=== PATIENT | female | born 1935 | race Caucasian/White ===

== ENCOUNTER 2021-03-16 10:10 | Emergency (ER) | payer MEDICARE ==
[2021-03-16] MEDS ORDERED: GlucaGen 1 MG IM ONE (10:17)
[2021-03-16] MEDS ORDERED: GlucaGen 1 MG ONE (10:21)
[2021-03-16 10:24] VITALS: PULSE 62
--- NOTE | 2021-03-16 11:03 | XRAY ---
Indication: Pill in trachea. Comparison: None PA/lateral chest demonstrates COPD with patchy right midlung interstitial alveolar opacities. No radiopaque foreign body. Remaining heart and left lung unremarkable. Scattered aortic calcifications. Bony thorax intact with mild osteopenia, degenerative changes, remote T7 compression fracture, and mild dextroscoliosis. Soft tissue neck reported separately. Impression: 1. Patchy right lung interstitial alveolar opacities. Rule out pneumonia. 2. COPD, sclerotic disease, and chronic bony findings.
--- NOTE | 2021-03-16 11:07 | XRAY ---
Indication: Pill in trachea. Comparison: None AP/lateral soft tissue neck demonstrates 2 pills in the proximal esophagus approximately C6-C7 level. Elsewhere osteopenia and minimal/mild multilevel cervical degenerative changes. No other bony, articular, or soft tissue abnormalities. Chest reported separately.
[2021-03-16 11:17] VITALS: BP 153/98; O2SAT 99
[2021-03-16 12:02] LABS: Absolute Neutrophil Ct (ANC) 10.43 (1.4-6.9); Basophil (Absolute #) 0.01 (0-0.4); Eosinophil % 0.1 % (0.00-5.0); Eosinophil (Absolute #) 0.01 (0-0.5); Hematocrit 40.9 % (35-47); Lymphocyte (Absolute #) 1.36 (1.0-4.6); Lymphocytes % 10.9 % (24.0-44.0); Mean Cell Volume 94.5 fl (78-100); Mean Corpuscular Hgb Concent. 31.8 g/dl (32-36); Mean Platelet Volume 10.8 fl (7.5-11.0); Monocyte (Absolute #) 0.65 (0.0-1.3); Monocytes % 5.2 % (0.0-12.0); Neutrophil % 83.7 % (36.0-66.0); Platelet Count 219 K/mm3 (150-450); Red Blood Count 4.33 M/mm3 (4.1-5.4); Red Cell Distribution Width 13.1 % (11.5-14.0); White Blood Count 12.5 K/mm3 (4.0-10.5)
--- NOTE | 2021-03-16 12:09 | ERPHSYRPT ---
- History of Present Illness Time Seen by Provider: 03/16/21 10:30 Source: patient, EMS Exam Limitations: no limitations Patient Subjective Stated Complaint: pt here for possible pill stuck in throat, ems states she schoked after taking pills this am and she is unable to swallow water Triage Nursing Assessment: pt alert, states feels like pill in throat.resp easy, skin w/d/p. pt gagging at times. no drooling Physician History: Patient was taking a series of pills this morning when she apparently had either a bolus of pills or a pill which lodged and she was sent to the ER on the order of Dr. Adam Howell. She has attempted on several occasions to swallow water but it immediately comes back up. She has a history of hyperlipidemia hypertension. Timing/Duration: today Cough Quality/Degree: productive cough Modifying Factors: Improves With: other (The episode of choking and inability to swallow her saliva and water occurred after she took several pills.) Associated Symptoms: cough Allergies/Adverse Reactions: No Known Drug Allergies Allergy (Verified 03/16/21 10:31) Home Medications: Fenofibrate 54 mg PO DAILY 10/07/12 [History] Furosemide 40 mg [Lasix 40 MG] 40 mg PO DAILY 10/07/12 [History] Irbesartan/Hydrochlorothiazide [Avalide 150-12.5 mg Tablet] 1 each PO DAILY 10/07/12 [History] Omeprazole Magnesium [Prilosec Otc] 20 mg PO DAILY 10/07/12 [History] Simvastatin 40 mg [Zocor 40 mg] 40 mg PO DAILY 10/07/12 [History] Hx Tetanus, Diphtheria Vaccination/Date Given: No Hx Influenza Vaccination/Date Given: No Hx Pneumococcal Vaccination/Date Given: Yes Travel Risk - International Travel Have you traveled outside of the country in past 3 weeks: No - Coronavirus Screening Are you exhibiting any of the following symptoms?: No - Vaccine Status Have you recieved a Covid-19 vaccination: No Director Of Loss Prevention: Unknown - Vaccination Dates Date of 2cond Vaccination (if applicable): ? Dates if Unknown: ? - Review of Systems Constitutional: No Fever, No Chills Eyes: No Symptoms Ears, Nose, & Throat: Other (Difficulty swallowing) Respiratory: Cough, No Dyspnea Cardiac: No Chest Pain, No Edema, No Syncope Abdominal/Gastrointestinal: No Abdominal Pain, No Nausea, No Vomiting, No Diarrhea Genitourinary Symptoms: No Dysuria Musculoskeletal: No Back Pain, No Neck Pain Skin: No Rash Neurological: No Dizziness, No Focal Weakness, No Sensory Changes Psychological: No Symptoms Endocrine: No Symptoms All Other Systems: Reviewed and Negative - Past Medical History Pertinent Past Medical History: Yes Neurological History: Other ENT History: Cataracts Cardiac History: Hypertension, Other Respiratory History: No Pertinent History Endocrine Medical History: Diabetes Type I, Other Musculoskeletal History: Arthritis, Degenerative Disk Disease, Fractures, Osteoarthritis, Osteoporosis, Other GI Medical History: GERD History: No Pertinent History Psycho-Social History: Anxiety, Depression Female Reproductive Disorders: No Pertinent History Other Medical History: HX OF HAVING HER URETHRA OPENED WITH STENOSIS BACK IN THE 70'S - Past Surgical History Past Surgical History: Yes Neuro Surgical History: No Pertinent History Cardiac: No Pertinent History Respiratory: No Pertinent History Gastrointestinal: Appendectomy, Cholecystectomy Genitourinary: Other Musculoskeletal: Other Female Surgical History: Hysterectomy Other Surgical History: BACK SURGERY TIMES 2. LEFT EYE CATARACT REMOVAL. RIGHT EYE STILL HAS CATARACT - Social History Smoking Status: Former smoker How long have you smoked: 50 Exposure to second hand smoke: No Drug Use: none Patient Lives Alone: No ([facility]) - Female History Hx Last Menstrual Period: post - Nursing Vital Signs Nursing Vital Signs: Initial Vital Signs Temperature 97.0 F 03/16/21 10:23 Pulse Rate 62 03/16/21 10:23 Respiratory Rate 18 03/16/21 10:23 Blood Pressure 151/74 03/16/21 10:23 O2 Sat by Pulse Oximetry 97 03/16/21 10:23 Pain Scale Pain Intensity 3 - Physical Exam General Appearance: mild distress Eye Exam: PERRL/EOMI, eyes nml inspection Ears, Nose, Throat Exam: TMs normal, pharynx normal, moist mucous membranes, other (Difficulty swallowing sensation of something stuck in her throat) Neck Exam: normal inspection, non-tender, supple, full range of motion Respiratory Exam: rhonchi, No respiratory distress Cardiovascular Exam: regular rate/rhythm, normal heart sounds Gastrointestinal/Abdomen Exam: soft, No tenderness Back Exam: normal inspection, No CVA tenderness, No vertebral tenderness Extremity Exam: normal inspection, normal range of motion Neurologic Exam: alert, oriented x 3, cooperative, normal mood/affect, sensation nml, No motor deficits Skin Exam: normal color, warm, dry, No rash SpO2 Interpretation: normal SpO2: 99 O2 Delivery: Room Air - Course Nursing assessment & vital signs reviewed: Yes - Radiology Exams C-Spine X-ray Interpretation: Interpreted by me (The radiologist demonstrated 2 pills in the proximal esophagus at approximately the C6-7 level she also showed on her chest x-ray a patchy right lung and interstitial opacities are the) Ordered Tests: Active Orders 24 hr Category Date Time Status CHEST 2 VIEWS (PA AND LAT) Stat Exams 03/16/21 10:48 Completed NECK SOFT TISSUE Stat Exams 03/16/21 10:14 Completed CBC W DIFF Stat Lab 03/16/21 11:45 Completed CMP Stat Lab 03/16/21 11:45 Received Medication Summary Discontinued Medications Generic Name Dose Route Start Last Admin Trade Name Regis PRN Reason Stop Dose Admin Glucagon 1 mg 03/16/21 10:17 03/16/21 10:22 Glucagon 1 Mg/Vial Vial IM 03/16/21 10:18 1 mg STAT ONE Administration Glucagon Confirm 03/16/21 10:21 Glucagon 1 Mg/Vial Vial Administered 03/16/21 10:22 Dose 1 mg .ROUTE .STK-MED ONE - Progress Progress: improved Air Movement: good Progress Note: 03/16/21 12:09 Chest x-ray showed a possible small infiltrate in the right lung and as a consequence this could represent some aspiration as opposed so we will treat her with antibiotics. Blood Culture(s) Obtained: No Antibiotics given: Yes - Departure Departure Disposition: Extended Care Facility Clinical Impression: Impacted esophageal foreign body Condition: Stable Critical Care Time: No Referrals: AKANKSHA FRENCH [Primary Care Provider] - Follow up/PCP as directed Instructions: Choking Prescriptions: Cephalexin 250 mg/5 ml Susp [Keflex 250 mg/5 ml Susp] 500 mg PO TID #300 ml
== END 2021-03-16 12:25 | disposition home or self-care (01) ==
LOC: ED 10:10
DX: T18.198A Other foreign object in esophagus causing other injury, initial encounter (principal); I10 Essential (primary) hypertension; E10.9 Type 1 diabetes mellitus without complications
CPT/HCPCS: 36415; 70360; 71046; 80053; 85025; 96372; 99284; J1610

== ENCOUNTER 2023-06-08 14:45 | Emergency (ER) | payer MEDICARE ==
[2023-06-08 15:07] VITALS: TEMP 97.9
[2023-06-08 15:17] VITALS: RESP 20
[2023-06-08 15:28] LABS: Absolute Neutrophil Ct (ANC) 7.38 x10^3/uL (1.4-6.9); BASOPHIL % 0.7 % (0.0-0.4); Basophil (Absolute #) 0.07 x10^3/uL (0-0.4); Eosinophil % 0.3 % (0.00-5.0); Eosinophil (Absolute #) 0.03 x10^3/uL (0-0.5); Hematocrit 43.9 % (35-47); Hemoglobin 12.9 g/dL (12.0-16.0); IMMATURE GRAN # 0.04 x10^3u/L (0.00-0.03); IMMATURE GRAN % 0.4 % (0.00-0.4); Lymphocytes % 20.9 % (24.0-44.0); Mean Cell Volume 101.9 fL (78-100); Mean Corpuscular Hemoglobin 29.9 pg (26-32); Mean Corpuscular Hgb Concent. 29.4 g/dL (32-36); Mean Platelet Volume 11.6 fL (7.5-11.0); Monocyte (Absolute #) 0.83 x10^3/uL (0.0-1.3); Monocytes % 7.9 % (0.0-12.0); Neutrophil % 69.8 % (36.0-66.0); Platelet Count 247 x10^3/uL (150-450); Red Blood Count 4.31 x10^6/uL (4.1-5.4); Red Cell Distribution Width 13.1 % (11.5-14.0); White Blood Count 10.6 x10^3/uL (4.0-10.5)
[2023-06-08 15:38] LABS: ALBUMIN 3.9 g/dL (3.5-5.0); ANION GAP 15.5 MEQ/L (5-15); BILIRUBIN,TOTAL 0.6 mg/dL (0.2-1.3); Calcium 9.5 mg/dL (8.4-10.2); Creatinine 1 0.99 mg/dL (0.52-1.04); EST GLOMERULAR FILTRATION RATE 54.5 ML/MIN; Potassium 4.1 mmol/L (3.5-5.1); Total Protein 7.2 g/dL (6.3-8.2)
[2023-06-08 15:47] LABS: Appearance Clear (Clear); Bacteria Rare /HPF (None Seen); Bilirubin Negative (Negative); Blood Negative (Negative); Epithelial Cells Rare /HPF (None Seen); Glucose, Urine Negative (Negative); Hyaline Casts 0-2 /LPF (0-2); Ketones Trace (Negative); Leukocyte Esterase Negative (Negative); Nitrite Negative (Negative); Ph 5.5 (4.6-8.0); Protein,Urine Dip Negative (Negative); RBC 0-2 /HPF (0-5); Specific Gravity 1.015 (1.005-1.030); Urobilinogen 0.2 mg/dL (0.2); WBC 0-2 /HPF (0-5)
[2023-06-08 15:48] LABS: ADD URINE CULTURE? YES (NO); Budding Yeast Moderate /HPF (None Seen)
[2023-06-08] MEDS ORDERED: Sodium Chloride 0.9% 1000 ML 1,000 ML ONE (15:51)
[2023-06-08] MEDS: Sodium Chloride 0.9% 1000 ML 1,000 ML IV SCH (15:52)
[2023-06-08 15:56] VITALS: O2SAT 96
--- NOTE | 2023-06-08 17:07 | XRAY ---
CLINICAL HISTORY: fall/AMS COMPARISON: None. TECHNIQUE: Axial noncontrast CT scan of the brain was performed from the skull base to the high parietal region. With coronal and sagittal reconstruction. "One of the following dose reduction techniques were utilized for this exam: Automated exposure control, adjustment of the mA and/or kV according to patient size, and use of iterative reconstruction." FINDINGS: The visualized brain parenchyma shows a normal appearance. The ventricular system, cortical sulci, and basal cisterns are prominent and consistent with senile changes. No focal parenchymal abnormalities are demonstrated. Smith-white matter differentiation is maintained. No midline shifts or deformity. No intracerebral or extra axial hematoma. Normal CT appearance of the posterior fossa structures namely the cerebellar hemispheres, brainstem, and cerebellar peduncles. The IACs are unremarkable. The cerebello-pontine angles are clear. The pituitary gland, the pineal gland, and the optic chiasm is unremarkable. The osseous structures in the skull base are unremarkable. No definite calvarium fractures. Scanned paranasal sinuses are clear. IMPRESSION: 1. Senile age-related changes. 2. No brain injury or hematoma. 3. No calvarial fracture. Electronically Signed by: Isael Constantino MD. (06/08/2023 17:03:08 EDT)
--- NOTE | 2023-06-08 17:19 | ERPHSYRPT ---
- History of Present Illness Time Seen by Provider: 06/08/23 14:46 Source: patient, EMS, sn[facility] records Exam Limitations: clinical condition Patient Subjective Stated Complaint: Soila Rivas advised "She is not acting herself today. She is aggitated, combative. She fell on friday morning at 2 am and has a hematoma to the back of the head. She does have dementia but she is normally allert." Triage Nursing Assessment: Pt presented alert and tired. PT will open eyes and look around when spoken to. PT last known well last night sometime. PT in no apparent respiratory distress. PT will close eyes and appear asleep when not stimulated with questions. Physician History: 88-year-old female with history of dementia with baseline confusion, hypertension, hypothyroidism is brought in the ER with complains of increasing confusion and agitation noticed by snf. Patient apparently had a ground-level fall with hematoma to the back of her head yesterday morning. She is also been recently treated for UTI. No fever or chills reported. No difficulty breathing. No injury anywhere else. No vomiting or diarrhea reported. Patient is moving all 4 extremities, gets easily agitated with asking questions. Not a good historian and history is limited. Allergies/Adverse Reactions: No Known Drug Allergies Allergy (Verified 03/16/21 10:31) Home Medications: Fenofibrate 54 mg PO DAILY 10/07/12 [History] Furosemide 40 mg [Lasix 40 MG] 40 mg PO DAILY 10/07/12 [History] Irbesartan/Hydrochlorothiazide [Avalide 150-12.5 mg Tablet] 1 each PO DAILY 10/07/12 [History] Omeprazole Magnesium [Prilosec Otc] 20 mg PO DAILY 10/07/12 [History] Simvastatin 40 mg [Zocor 40 mg] 40 mg PO DAILY 10/07/12 [History] Hx Tetanus, Diphtheria Vaccination/Date Given: No Hx Influenza Vaccination/Date Given: No Hx Pneumococcal Vaccination/Date Given: Yes Travel Risk - International Travel Have you traveled outside of the country in past 3 weeks: No - Emerging Infectious Disease Are you exhibiting symptoms associated with any current EIDs: No - Review of Systems All Other Systems: Reviewed and Negative - Past Medical History Pertinent Past Medical History: Yes Neurological History: Other ENT History: Cataracts Cardiac History: Hypertension, Other Respiratory History: No Pertinent History Endocrine Medical History: Diabetes Type I, Other Musculoskeletal History: Arthritis, Degenerative Disk Disease, Fractures, Osteoarthritis, Osteoporosis, Other GI Medical History: GERD History: No Pertinent History Psycho-Social History: Anxiety, Depression Female Reproductive Disorders: No Pertinent History Other Medical History: HX OF HAVING HER URETHRA OPENED WITH STENOSIS BACK IN THE 70'S - Past Surgical History Past Surgical History: Yes Neuro Surgical History: No Pertinent History Cardiac: No Pertinent History Respiratory: No Pertinent History Gastrointestinal: Appendectomy, Cholecystectomy Genitourinary: Other Musculoskeletal: Other Female Surgical History: Hysterectomy Other Surgical History: BACK SURGERY TIMES 2. LEFT EYE CATARACT REMOVAL. RIGHT EYE STILL HAS CATARACT - Social History Smoking Status: Former smoker How long have you smoked: 50 Exposure to second hand smoke: No Drug Use: none Patient Lives Alone: No ([facility]) - Nursing Vital Signs Nursing Vital Signs: Initial Vital Signs Temperature 97.9 F 06/08/23 14:47 Pulse Rate 79 06/08/23 14:47 Respiratory Rate 18 06/08/23 14:47 Blood Pressure 166/78 06/08/23 14:47 O2 Sat by Pulse Oximetry 97 06/08/23 14:47 Pain Scale Pain Intensity 0 - Physical Exam General Appearance: no apparent distress, alert Eye Exam: PERRL/EOMI Ears, Nose, Throat Exam: normal ENT inspection Neck Exam: normal inspection, non-tender, supple, full range of motion Respiratory Exam: normal breath sounds, lungs clear Cardiovascular Exam: regular rate/rhythm, normal heart sounds Gastrointestinal/Abdomen Exam: soft, normal bowel sounds, No tenderness Back Exam: normal inspection, normal range of motion Extremity Exam: normal inspection, normal range of motion, pelvis stable Neurologic Exam: alert, explosives handler II-XII nml as tested, sensation nml, other (2 x 2 cm hematoma in the occipital area with no step in deformity.), No oriented x 3, No cooperative, No normal mood/affect, No motor deficits Skin Exam: normal color SpO2 Interpretation: normal SpO2: 96 O2 Delivery: Room Air Ordered Tests: Active Orders 24 hr Category Date Time Status IV Insertion STAT Care 06/08/23 14:47 Active NPO (ED) STAT Care 06/08/23 14:47 Active CERVICAL SPINE WO CONTRAST [CT] Stat Exams 06/08/23 16:13 Taken CHEST 1 VIEW (PORTABLE) Stat Exams 06/08/23 16:13 Taken HEAD WITHOUT CONTRAST [CT] Stat Exams 06/08/23 16:13 Completed BLOOD CULTURE Stat Lab 06/08/23 15:00 Received CBC W DIFF Stat Lab 06/08/23 15:00 Completed CMP Stat Lab 06/08/23 15:00 Completed CULTURE,URINE Stat Lab 06/08/23 15:29 Received Lactic Acid Stat Lab 06/08/23 15:35 Completed PROCALCITONIN Stat Lab 06/08/23 Completed UA W/RFX UR CULTURE Stat Lab 06/08/23 15:29 Completed Medication Summary Generic Name Dose Route Start Last Admin Trade Name Freq PRN Reason Stop Dose Admin Sodium Chloride 1,000 mls @ 100 mls/hr 06/08/23 15:45 06/08/23 15:52 Sodium Chloride 0.9% 1000 Ml IV 07/08/23 15:44 100 mls/hr .Q10H TRISTA Administration Lab/Rad Data: Laboratory Result Diagrams 06/08/23 15:00 06/08/23 15:00 Laboratory Results 06/08/23 06/08/23 06/08/23 Range/Units Unknown 15:35 15:29 WBC (4.0-10.5) x10^3/uL RBC (4.1-5.4) x10^6/uL Hgb (12.0-16.0) g/dL Hct (35-47) % MCV (78-100) fL MCH (26-32) pg MCHC (32-36) g/dL RDW (11.5-14.0) % Plt Count (150-450) x10^3/uL MPV (7.5-11.0) fL Gran % (36.0-66.0) % Immature Gran % (Auto) (0.00-0.4) % Nucleat RBC Rel Count (0.00-0.1) % Eos # (Auto) (0-0.5) x10^3/uL Immature Gran # (Auto) (0.00-0.03) x10^3u/L Absolute Lymphs (auto) (1.0-4.6) x10^3/uL Absolute Monos (auto) (0.0-1.3) x10^3/uL Absolute Nucleated RBC (0.00-0.01) x10^3u/L Lymphocytes % (24.0-44.0) % Monocytes % (0.0-12.0) % Eosinophils % (0.00-5.0) % Basophils % (0.0-0.4) % Absolute Granulocytes (1.4-6.9) x10^3/uL Basophils # (0-0.4) x10^3/uL Sodium (135-145) mmol/L Potassium (3.5-5.1) mmol/L Chloride (98-107) mmol/L Carbon Dioxide (22-30) mmol/L Anion Gap (5-15) MEQ/L BUN (7-17) mg/dL Creatinine (0.52-1.04) mg/dL Estimated GFR ML/MIN Glucose (74-106) mg/dL Lactic Acid 1.6 (0.4-2.0) Calcium (8.4-10.2) mg/dL Total Bilirubin (0.2-1.3) mg/dL AST (14-36) U/L ALT (0-35) U/L Alkaline Phosphatase (38-126) U/L Serum Total Protein (6.3-8.2) g/dL Albumin (3.5-5.0) g/dL Procalcitonin 0.047 (0.030-0.080) ng/mL Urine Color Yellow (Yellow) Urine Appearance Clear (Clear) Urine pH 5.5 (4.6-8.0) Ur Specific Bell 1.015 (1.005-1.030) Urine Protein Negative (Negative) Urine Glucose (UA) Negative (Negative) mg/dL Urine Ketones Trace A (Negative) Urine Blood Negative (Negative) Urine Nitrite Negative (Negative) Urine Bilirubin Negative (Negative) Urine Urobilinogen 0.2 (0.2) mg/dL Ur Leukocyte Esterase Negative (Negative) U Hyaline Cast (Auto) 0-2 (0-2) /LPF Urine Microscopic RBC 0-2 (0-5) /HPF Urine Microscopic WBC 0-2 (0-5) /HPF Ur Epithelial Cells Rare (None Seen) /HPF Urine Bacteria Rare A (None Seen) /HPF Urine Yeast (Budding) Moderate A (None Seen) /HPF Urine Culture Reflexed YES (NO) 06/08/23 06/08/23 Range/Units 15:00 15:00 WBC 10.6 H (4.0-10.5) x10^3/uL RBC 4.31 (4.1-5.4) x10^6/uL Hgb 12.9 (12.0-16.0) g/dL Hct 43.9 (35-47) % MCV 101.9 H (78-100) fL MCH 29.9 (26-32) pg MCHC 29.4 L (32-36) g/dL RDW 13.1 (11.5-14.0) % Plt Count 247 (150-450) x10^3/uL MPV 11.6 H (7.5-11.0) fL Gran % 69.8 H (36.0-66.0) % Immature Gran % (Auto) 0.4 (0.00-0.4) % Nucleat RBC Rel Count 0.0 (0.00-0.1) % Eos # (Auto) 0.03 (0-0.5) x10^3/uL Immature Gran # (Auto) 0.04 H (0.00-0.03) x10^3u/L Absolute Lymphs (auto) 2.20 (1.0-4.6) x10^3/uL Absolute Monos (auto) 0.83 (0.0-1.3) x10^3/uL Absolute Nucleated RBC 0.00 (0.00-0.01) x10^3u/L Lymphocytes % 20.9 L (24.0-44.0) % Monocytes % 7.9 (0.0-12.0) % Eosinophils % 0.3 (0.00-5.0) % Basophils % 0.7 (0.0-0.4) % Absolute Granulocytes 7.38 H (1.4-6.9) x10^3/uL Basophils # 0.07 (0-0.4) x10^3/uL Sodium 140 (135-145) mmol/L Potassium 4.1 (3.5-5.1) mmol/L Chloride 110 H (98-107) mmol/L Carbon Dioxide 19 L (22-30) mmol/L Anion Gap 15.5 H (5-15) MEQ/L BUN 26 H (7-17) mg/dL Creatinine 0.99 (0.52-1.04) mg/dL Estimated GFR 54.5 ML/MIN Glucose 100 (74-106) mg/dL Lactic Acid (0.4-2.0) Calcium 9.5 (8.4-10.2) mg/dL Total Bilirubin 0.60 (0.2-1.3) mg/dL AST 26 (14-36) U/L ALT 9 (0-35) U/L Alkaline Phosphatase 66 (38-126) U/L Serum Total Protein 7.2 (6.3-8.2) g/dL Albumin 3.9 (3.5-5.0) g/dL Procalcitonin (0.030-0.080) ng/mL Urine Color (Yellow) Urine Appearance (Clear) Urine pH (4.6-8.0) Ur Specific Bell (1.005-1.030) Urine Protein (Negative) Urine Glucose (UA) (Negative) mg/dL Urine Ketones (Negative) Urine Blood (Negative) Urine Nitrite (Negative) Urine Bilirubin (Negative) Urine Urobilinogen (0.2) mg/dL Ur Leukocyte Esterase (Negative) U Hyaline Cast (Auto) (0-2) /LPF Urine Microscopic RBC (0-5) /HPF Urine Microscopic WBC (0-5) /HPF Ur Epithelial Cells (None Seen) /HPF Urine Bacteria (None Seen) /HPF Urine Yeast (Budding) (None Seen) /HPF Urine Culture Reflexed (NO) - Progress Progress: unchanged Progress Note: 06/08/23 17:16 88-year-old is evaluated in the ER for increasing confusion/agitation with a recent fall and being treated for UTI at snf. Patient is not in any distress. Moving all [address] head and cervical spine which are negative for any acute trauma related findings. Chest x-ray negative for any acute cardiopulmonary findings reviewed by me, official report is pending. Has a white count of 10, fairly unremarkable chemistries, no UTI. Given gentle hydration. I do not have any obvious reason for patient's confusion or agitations. Blood cultures are obtained. I do not think patient needs to be admitted and she remained calm while in the ER except if she is stimulated by asking questions/examination. I would send her back to snf have her outpatient follow-up with primary care. retirement is advised to send patient to ER for any worsening. Counseled pt/family regarding: lab results, diagnosis, need for follow-up, rad results Medical Desision Making - Independent Historian Additional History obtained from: Detention nurse, Chemical Applicator/EMT - Diagnostic Testing Diagnostic test were ordered, analyzed, and reviewed by me: Yes Radiological Interpretation: Interpreted by me, Reviewed by me - Departure Departure Disposition: Home Clinical Impression: Fall, Scalp contusion, Dementia with behavioral disturbance Condition: Stable Critical Care Time: No Referrals: ENVIVE,ENVIVE [Primary Care Provider] - Follow up with PCP 1 day Instructions: Head Injury in Adults (DC), Dementia (DC) Additional Instructions: Increase hydration, Tylenol as needed for aches and pains. Follow-up with primary care for reevaluation in the morning. Return to ER for any worsening. Safe room environment to avoid a fall.
--- NOTE | 2023-06-08 17:51 | XRAY ---
CLINICAL HISTORY: fall/AMS COMPARISON: None TECHNIQUE: Axial CT of the cervical spine was performed with sagittal and coronal reconstructions without contrast. "One of the following dose reduction techniques were utilized for this exam: Automated exposure control, adjustment of the mA and/or kV according to patient size, and use of iterative reconstruction." FINDINGS: No acute fractures or dislocation. Straightened cervical curve possibly muscle spasm. Reduced bone density of the examined bones. 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 Multilevel neurocentral and facetal arthropathies. The vertebral bodies are normal in height. No lytic or sclerotic bone lesion. Degenerative changes at the atlantoaxial articulation. The paravetebral soft tissues are unremarkable. Advanced vascular calcifications are seen. IMPRESSION: 1. No acute fractures or dislocation. 2. 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 MRI is advised for further evaluation. Electronically Signed by: Isael Constantino MD. (06/08/2023 17:47:11 EDT)
[2023-06-08 18:00] VITALS: BP 175/101; PULSE 78
--- NOTE | 2023-06-08 22:21 | XRAY ---
Indication: Altered mental status. Comparison: March 16, 2021 Portable chest less inflated and now clear again with COPD. Heart not enlarged again with tortuous descending aorta. Bony thorax intact again with osteopenia, degenerative changes, and mild dextroscoliosis. Impression: Nonacute underinflated chest with chronic features.
== END 2023-06-08 18:01 | disposition home or self-care (01) ==
LOC: ED 14:45
DX: S00.03XA Contusion of scalp, initial encounter (principal); W19.XXXA Unspecified fall, initial encounter; Y92.129 Unspecified place in nursing home as the place of occurrence of the external cause; F03.911 Unspecified dementia, unspecified severity, with agitation; I10 Essential (primary) hypertension; E10.9 Type 1 diabetes mellitus without complications; Z79.899 Other long term (current) drug therapy
CPT/HCPCS: 36000; 36415; 70450; 71045; 72125; 80053; 81001; 83605; 84145; 85025; 87040; 87086; 99284